=== PATIENT | male | born 1995 | race Caucasian/White ===

== ENCOUNTER 2017-07-05 18:36 | Emergency (ER) | payer OTHER ==
[~2017-07-05] VITALS: Ht 177.8 cm; Wt 95.2 kg
[2017-07-05] MEDS ORDERED: DICL75ER PO ×2 (20:06→20:32)
[2017-07-05] MEDS ORDERED: TRAZ100 PO (20:10)
[2017-07-05] MEDS ORDERED: Norco 5-325 Ta1 EACH PO (20:32)
== END 2017-07-05 20:35 | disposition home or self-care (01) ==
LOC: ER 18:36
DX: S93.402A Sprain of unspecified ligament of left ankle, initial encounter (principal); F17.200 Nicotine dependence, unspecified, uncomplicated; X58.XXXA Exposure to other specified factors, initial encounter
CPT/HCPCS: 29505; 73610; 73630; 96372; 99283; J1885

== ENCOUNTER 2017-07-17 10:55 | Emergency (ER) | payer OTHER ==
[~2017-07-17] VITALS: Ht 170.2 cm; Wt 93.0 kg
[~2017-07-17 10:55] MED LIST: DICL75ER PO; Norco 5-325 Ta1 EACH PO; TRAZ100 PO
[2017-07-17] MEDS ORDERED: BENZ100A PO (12:13)
[2017-07-17] MEDS ORDERED: Sudogest30 MG PO (12:13)
[2017-07-17] MEDS ORDERED: Flonase 0.05% N16 GM (12:13)
[2017-07-17] MEDS ORDERED: ALBU90OI INH (12:13)
== END 2017-07-17 12:26 | disposition home or self-care (01) ==
LOC: ER 10:55
DX: J02.9 Acute pharyngitis, unspecified (principal); J45.909 Unspecified asthma, uncomplicated; F17.200 Nicotine dependence, unspecified, uncomplicated
CPT/HCPCS: 99283

== ENCOUNTER 2017-07-31 18:08 | Emergency (ER) | payer BC, OTHER ==
[~2017-07-31] VITALS: Ht 177.8 cm; Wt 95.2 kg
[~2017-07-31 18:08] MED LIST changes: +ALBU90OI INH; +BENZ100A PO; +Flonase 0.05% N16 GM; +Sudogest30 MG PO
[2017-07-31] MEDS ORDERED: TRAZ100 PO (18:16)
[2017-07-31] MEDS ORDERED: ESCI10 PO (18:16)
== END 2017-07-31 23:29 | disposition home or self-care (01) ==
LOC: ER 18:08
DX: M79.5 Residual foreign body in soft tissue (principal); J45.909 Unspecified asthma, uncomplicated; F17.200 Nicotine dependence, unspecified, uncomplicated; Z79.899 Other long term (current) drug therapy
CPT/HCPCS: 96372; 99283; J1885